=== PATIENT | female | born 1985 | race African-American/Black ===

== ENCOUNTER 2018-03-04 20:58 | Emergency (ER) | payer BC ==
[~2018-03-04] VITALS: Ht 172.7 cm; Wt 126.5 kg
[~2018-03-04 20:58] MED LIST: IBUPROFEN200 M1 PO; KEFLEX500 MG PO; MACROBID 100 M100 M1 PO; NAPROSYN500 MG PO; NORCO 5-325 TA1 EACH PO; TESSALON PERLE100 MG PO; THERAFLU EXP245.5 M1 PO; TRAMADOL 50 MG50 MG PO; VENTOLIN HFA 1818 GM INH; ZANTAC 150MG T150 MG PO
[2018-03-04] MEDS ORDERED: VALIUM5 MG PO (21:59)
[2018-03-04] MEDS ORDERED: MOBIC15 MG PO (21:59)
[2018-03-04 22:09] VITALS: BP 117/80
== END 2018-03-04 22:15 | disposition home or self-care (01) ==
LOC: ER 20:58
DX: S46.912A Strain of unspecified muscle, fascia and tendon at shoulder and upper arm level, left arm, initial encounter (principal); Z88.2 Allergy status to sulfonamides; X58.XXXA Exposure to other specified factors, initial encounter; Y93.89 Activity, other specified; Y92.89 Other specified places as the place of occurrence of the external cause; Y99.8 Other external cause status

== ENCOUNTER 2019-06-12 14:30 | Emergency (ER) | payer BC ==
[~2019-06-12] VITALS: Ht 157.5 cm; Wt 130.2 kg
[~2019-06-12 14:30] MED LIST changes: +MOBIC15 MG PO; +VALIUM5 MG PO
[2019-06-12] MEDS ORDERED: IBUPROFEN 800800 M1 PO (15:28)
[2019-06-12] MEDS ORDERED: NAPROSYN500 MG PO (15:47)
[2019-06-12 15:50] VITALS: BP 144/104
== END 2019-06-12 15:50 | disposition home or self-care (01) ==
LOC: ER 14:30
DX: S86.812A Strain of other muscle(s) and tendon(s) at lower leg level, left leg, initial encounter (principal); Z88.2 Allergy status to sulfonamides; Z88.8 Allergy status to other drugs, medicaments and biological substances; Z86.718 Personal history of other venous thrombosis and embolism; X58.XXXA Exposure to other specified factors, initial encounter; Y92.89 Other specified places as the place of occurrence of the external cause; Y93.89 Activity, other specified; Y99.8 Other external cause status

== ENCOUNTER 2020-08-13 10:36 | Emergency (ER) | payer BC ==
[~2020-08-13] VITALS: Ht 157.5 cm; Wt 131.5 kg
[~2020-08-13 10:36] MED LIST changes: +IBUPROFEN 800800 M1 PO
[2020-08-13 11:07] LABS: WBC 9.1 thou/uL (4.0-11.0)
[2020-08-13 11:08] LABS: ABSOLUTE NEUTROPHILS 5.7 thou/uL (1.4-8.2); BASOPHILS 0.6 % (0.0-2.0); EOSINOPHILS 1.4 % (0.0-3.0); HEMATOCRIT 40.6 % (37.0-47.0); HEMOGLOBIN 13.6 gm/dL (12.0-15.0); MCH 30.5 pg (26.0-34.0); MCHC 33.4 g/dL (28.0-37.0); MCV 91.5 fL (80.0-100.0); MONOCYTES 5.4 % (1.0-8.0); PLATELET COUNT 346 thou/uL (150-400); POLYS 62.6 % (36.0-66.0); RBC 4.44 mil/uL (4.20-5.00); RDW 15.3 % (10.5-14.5)
[2020-08-13 11:18] LABS: ANION GAP 5 mmol/L (7-16); BUN 12 mg/dL (7-18); CALCIUM 9.5 mg/dL (8.5-10.1); CHLORIDE 102 mmol/L (98-107); CO2 28 mmol/L (21-32); CREATININE 1.1 mg/dL (0.6-1.0); GLUCOSE 108 mg/dL (74-106); POTASSIUM 4.3 mmol/L (3.5-5.1); SODIUM 135 mmol/L (136-145)
[2020-08-13 11:23] LABS: URINE BILIRUBIN NEGATIVE (Negative); URINE BLOOD NEGATIVE (Negative); URINE CLARITY CLEAR; URINE COLOR YELLOW; URINE GLUCOSE-RANDOM* NEGATIVE (Negative); URINE KETONES NEGATIVE (Negative); URINE LEUKOCYTES-REFLEX NEGATIVE (Negative); URINE NITRITE-REFLEX NEGATIVE (Negative); URINE PROTEIN (DIPSTICK) NEGATIVE (Negative); URINE UROBILINOGEN 0.2 E.U./dl (0.2-1.0)
[2020-08-13 11:28] LABS: ALBUMIN 3.8 g/dL (3.4-5.0); SGOT 21 U/L (15-37); SGPT 26 U/L (30-65); TOTAL BILIRUBIN 0.4 mg/dL (0.2-1.0); TOTAL PROTEIN 7.9 g/dL (6.4-8.2); TROPONIN-I <0.06 ng/mL (<0.06)
[2020-08-13] MEDS ORDERED: CYCLOBENZAPRINE5 MG PO (12:31)
--- NOTE | 2020-08-13 13:14 | EKG ---
[facility] [place] [address] ELECTROCARDIOGRAM REPORT Name: CASTRO HODGSON Room #: REG [facility].#: [id number] Admission: 08/13/20 Attend Phys: Discharge: Date of : [birth year] Report #: [id number] THIS REPORT FOR: cc: David Patten MD FAA FACE David Patten MD FAA FACE Vish Gray MD [facility] ~ THIS REPORT FOR: //name// [facility] ED Test Date: 2020-08-13 Test Time: 10:45:41 Pat Name: CASTRO HODGSON Department: Room: Gender: F Magazine Hand: : 1985 Requested By: Helio Leal Order Number: [id number] MD: Vish Gray Measurements Intervals [place] Rate: 79 P: 17 ME: 147 QRS: 21 QRSD: 92 T: 5 QT: 369 QTc: 424 Interpretive Statements Sinus rhythm Compared to ECG 01/16/2013 18:37:45 No significant changes Electronically Signed On 08-13-2020 13:14:45 SAND SHOVELER by Vish Gray [email or web address] <ELECTRONICALLY SIGNED> By: Vish Gray MD, FACC 08/13/20 1314 1045 1045 Vish Gray MD, [facility] /EPI
[2020-08-13 13:32] VITALS: BP 122/90
== END 2020-08-13 13:36 | disposition home or self-care (01) ==
LOC: ER 10:36
PROVIDERS: Physician Assistant
DX: R07.89 Other chest pain (principal); M54.5 Low back pain; M54.6 Pain in thoracic spine; M62.830 Muscle spasm of back; R30.0 Dysuria; R20.0 Anesthesia of skin; I10 Essential (primary) hypertension; Z88.2 Allergy status to sulfonamides

== ENCOUNTER 2020-10-12 09:35 | Emergency (ER) | payer OTHER ==
[~2020-10-12] VITALS: Ht 157.5 cm; Wt 130.2 kg
[~2020-10-12 09:35] MED LIST changes: +CYCLOBENZAPRINE5 MG PO
[2020-10-12 10:39] LABS: ABSOLUTE NEUTROPHILS 5.3 thou/uL (1.4-8.2); BASOPHILS 0.5 % (0.0-2.0); EOSINOPHILS 0.7 % (0.0-3.0); HEMATOCRIT 41.1 % (37.0-47.0); HEMOGLOBIN 13.5 gm/dL (12.0-15.0); LYMPHOCYTES 29.7 % (24.0-44.0); MCH 29.6 pg (26.0-34.0); MCHC 32.7 g/dL (28.0-37.0); MCV 90.6 fL (80.0-100.0); PLATELET COUNT 345 thou/uL (150-400); POLYS 64.1 % (36.0-66.0); RBC 4.54 mil/uL (4.20-5.00); RDW 14.2 % (10.5-14.5); WBC 8.3 thou/uL (4.0-11.0)
[2020-10-12 10:48] LABS: ANION GAP 8 mmol/L (7-16); BUN 11 mg/dL (7-18); CALCIUM 9.4 mg/dL (8.5-10.1); CHLORIDE 103 mmol/L (98-107); CO2 27 mmol/L (21-32); CREATININE 1.1 mg/dL (0.6-1.0); GLUCOSE 111 mg/dL (74-106); SODIUM 138 mmol/L (136-145)
[2020-10-12 10:59] LABS: DIRECT BILIRUBIN < 0.1 mg/dL (<0.1-0.2); LIPASE 66 U/L (73-393); SGOT 18 U/L (15-37); SGPT 29 U/L (30-65); TOTAL BILIRUBIN 0.4 mg/dL (0.2-1.0); TROPONIN-I <0.06 ng/mL (<0.06)
[2020-10-12 11:47] LABS: URINE BILIRUBIN NEGATIVE (Negative); URINE BLOOD NEGATIVE (Negative); URINE CLARITY CLEAR; URINE COLOR YELLOW; URINE GLUCOSE-RANDOM* NEGATIVE (Negative); URINE KETONES NEGATIVE (Negative); URINE LEUKOCYTES-REFLEX NEGATIVE (Negative); URINE NITRITE-REFLEX NEGATIVE (Negative); URINE PROTEIN (DIPSTICK) NEGATIVE (Negative); URINE SPECIFIC GRAVITY 1.015 (1.005-1.035); URINE UROBILINOGEN 0.2 E.U./dl (0.2-1.0)
[2020-10-12] MEDS ORDERED: XANAX 0.5 MG0.5 M1 PO (12:21)
[2020-10-12 12:29] VITALS: BP 138/96
--- NOTE | 2020-10-14 07:41 | EKG ---
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: [facility] : 1985 Requested By: Walt Mccormick Order Number: [id number] MD: Jb Myers Measurements Intervals [place] Rate: 77 P: 2 [place]: 146 QRS: 14 QRSD: 183 T: -12 QT: 396 QTc: 449 Interpretive Statements Sinus rhythm No significant abnormality Compared to ECG 08/13/2020 10:45:41 No significant change was found Electronically Signed On 10-14-2020 7:41:39 PASTRY COOK HELPER by Jb Myers [email or web address] <ELECTRONICALLY SIGNED> By: Jb Myers MD, [facility] 10/14/20 0741 0954 0954 Jb Myers MD, FACC /EPI
== END 2020-10-12 12:30 | disposition home or self-care (01) ==
LOC: ER 09:35
PROVIDERS: Emergency Medicine
DX: R07.9 Chest pain, unspecified (principal); R20.2 Paresthesia of skin; Z79.899 Other long term (current) drug therapy; Z88.2 Allergy status to sulfonamides; Z88.8 Allergy status to other drugs, medicaments and biological substances

== ENCOUNTER → 2020-11-12 | Outpatient (CLI) | payer OTHER ==
[~2020-11-12] MED LIST changes: +XANAX 0.5 MG0.5 M1 PO
== END ==
LOC: CAT 16:39
PROVIDERS: ATTEND Family Medicine
DX: Z13.6 Encounter for screening for cardiovascular disorders (principal); I25.10 Atherosclerotic heart disease of native coronary artery without angina pectoris; E78.00 Pure hypercholesterolemia, unspecified

== ENCOUNTER 2020-11-17 13:02 | Emergency (ER) | payer OTHER ==
[~2020-11-17] VITALS: Ht 160 cm; Wt 90.7 kg
[2020-11-17] MEDS ORDERED: CLONIDINE HCL0.1 MG PO (13:30)
[2020-11-17] MEDS ORDERED: PROAIR HFA8.5 GM INH (13:30)
[2020-11-17 14:01] LABS: BASOPHILS 0.5 % (0.0-2.0); EOSINOPHILS 0.3 % (0.0-3.0); HEMATOCRIT 42.8 % (37.0-47.0); LYMPHOCYTES 18.3 % (24.0-44.0); MCH 29.7 pg (26.0-34.0); MCHC 32.8 g/dL (28.0-37.0); MCV 90.5 fL (80.0-100.0); MONOCYTES 4.5 % (1.0-8.0); PLATELET COUNT 349 thou/uL (150-400); POLYS 76.4 % (36.0-66.0); RBC 4.74 mil/uL (4.20-5.00); RDW 14.4 % (10.5-14.5); WBC 9.2 thou/uL (4.0-11.0)
[2020-11-17 14:03] LABS: URINE BILIRUBIN NEGATIVE (Negative); URINE BLOOD NEGATIVE (Negative); URINE CLARITY CLEAR; URINE COLOR YELLOW; URINE GLUCOSE-RANDOM* NEGATIVE (Negative); URINE KETONES NEGATIVE (Negative); URINE LEUKOCYTES-REFLEX NEGATIVE (Negative); URINE NITRITE-REFLEX NEGATIVE (Negative); URINE PROTEIN (DIPSTICK) NEGATIVE (Negative); URINE UROBILINOGEN 0.2 E.U./dl (0.2-1.0)
[2020-11-17 14:08] LABS: ANION GAP 10 mmol/L (7-16); BUN 9 mg/dL (7-18); CALCIUM 9.5 mg/dL (8.5-10.1); CHLORIDE 101 mmol/L (98-107); CO2 27 mmol/L (21-32); CREATININE 1.2 mg/dL (0.6-1.0); GLUCOSE 103 mg/dL (74-106); POTASSIUM 4.4 mmol/L (3.5-5.1); SODIUM 138 mmol/L (136-145)
[2020-11-17 14:18] LABS: ALBUMIN 4.2 g/dL (3.4-5.0); AMYLASE 67 U/L (25-115); DIRECT BILIRUBIN 0.1 mg/dL (<0.1-0.2); LIPASE 63 U/L (73-393); SGOT 19 U/L (15-37); SGPT 25 U/L (30-65); TOTAL BILIRUBIN 0.4 mg/dL (0.2-1.0); TOTAL PROTEIN 8.5 g/dL (6.4-8.2); TROPONIN-I <0.06 ng/mL (<0.06)
[2020-11-17] MEDS ORDERED: NAPROSYN500 MG PO (15:59)
[2020-11-17] MEDS ORDERED: TYLENOL325 M1 PO (15:59)
[2020-11-17] MEDS ORDERED: XANAX 0.5 MG0.5 MG PO (15:59)
[2020-11-17 16:25] VITALS: BP 111/48
--- NOTE | 2020-11-18 07:39 | EKG ---
[place] [address] [facility] [place] [address] ELECTROCARDIOGRAM REPORT Name: CASTRO HODGSONMARLENELynne Room #: [facility] [id number] Admission: 11/17/20 Attend Phys: Discharge: 11/17/20 Date of : [birth year] Report #: [id number] [facility] ED Test Date: 2020-11-17 Test Time: 13:56:18 Pat Name: CASTRO HODGSON Department: Room: Gender: F Assistant: DLEANEY : 1985 Requested By: Walt Mccormick Order Number: [id number] MD: Vish Gray Measurements Intervals [place] Rate: 81 P: 25 [place]: 156 QRS: 21 QRSD: 92 T: 2 QT: 373 QTc: 433 Interpretive Statements Sinus rhythm Compared to ECG 10/12/2020 09:54:34 No significant changes Electronically Signed On 11-18-2020 7:38:59 CAMERA ASSEMBLER by Vish Gray [email or web address] <ELECTRONICALLY SIGNED> By: Vish Gray MD, [facility] 11/18/20 0738 1356 1356 Vish Gray MD, FACC /EPI
== END 2020-11-17 16:26 | disposition home or self-care (01) ==
LOC: ER 13:02
PROVIDERS: Emergency Medicine
DX: R07.9 Chest pain, unspecified (principal); F41.9 Anxiety disorder, unspecified; I10 Essential (primary) hypertension; N28.9 Disorder of kidney and ureter, unspecified; Z79.899 Other long term (current) drug therapy; Z88.2 Allergy status to sulfonamides; Z88.8 Allergy status to other drugs, medicaments and biological substances

== ENCOUNTER 2020-11-25 06:18 | Emergency (ER) | payer OTHER ==
[~2020-11-25] VITALS: Ht 157.5 cm; Wt 122.5 kg
[~2020-11-25 06:18] MED LIST changes: +CLONIDINE HCL0.1 MG PO; +PROAIR HFA8.5 GM INH; +TYLENOL325 M1 PO; +XANAX 0.5 MG0.5 MG PO
[2020-11-25 06:53] LABS: ABSOLUTE NEUTROPHILS 6.9 thou/uL (1.4-8.2); BASOPHILS 0.7 % (0.0-2.0); EOSINOPHILS 0.5 % (0.0-3.0); HEMATOCRIT 40.4 % (37.0-47.0); HEMOGLOBIN 13.1 gm/dL (12.0-15.0); LYMPHOCYTES 24.6 % (24.0-44.0); MCH 29.3 pg (26.0-34.0); MCHC 32.4 g/dL (28.0-37.0); MCV 90.3 fL (80.0-100.0); PLATELET COUNT 314 thou/uL (150-400); POLYS 68.2 % (36.0-66.0); RBC 4.47 mil/uL (4.20-5.00); RDW 14.7 % (10.5-14.5); WBC 10.1 thou/uL (4.0-11.0)
[2020-11-25 07:07] LABS: ANION GAP 9 mmol/L (7-16); BUN 10 mg/dL (7-18); CALCIUM 9.2 mg/dL (8.5-10.1); CHLORIDE 103 mmol/L (98-107); CO2 26 mmol/L (21-32); CREATININE 1.3 mg/dL (0.6-1.0); GLUCOSE 109 mg/dL (74-106); POTASSIUM 4.3 mmol/L (3.5-5.1); SODIUM 138 mmol/L (136-145)
[2020-11-25 07:15] LABS: TROPONIN-I <0.06 ng/mL (<0.06)
[2020-11-25 07:55] VITALS: BP 119/81
--- NOTE | 2020-11-25 14:56 | EKG ---
[address] [address] ELECTROCARDIOGRAM REPORT Name: CASRTO HODGSONMARLENELynne Room #: [facility] [id number] Admission: 11/25/20 Attend Phys: Discharge: 11/25/20 Date of : [birth year] Report #: [id number] [facility] ED Test Date: 2020-11-25 Test Time: 06:26:40 Pat Name: CASTRO HODGSON Department: Room: Gender: F Treasurer: TBARNES2 : 1985 Requested By: Richard Junior Order Number: [id number] MD: Rick Pandey Measurements Intervals [place] Rate: 89 P: 35 [place]: 148 QRS: 8 QRSD: 89 T: 9 QT: 352 QTc: 424 Interpretive Statements Sinus rhythm Compared to ECG 11/17/2020 13:56:18 No significant changes Electronically Signed On 11-25-2020 14:56:43 CDT by Rick Pandey [email or web address] <ELECTRONICALLY SIGNED> By: Rick Pandey MD 11/25/20 1456 0626 0626 MD CAL Vasquez
== END 2020-11-25 07:55 | disposition home or self-care (01) ==
LOC: ER 06:18
PROVIDERS: Emergency Medicine
DX: R07.89 Other chest pain (principal); I10 Essential (primary) hypertension; Z79.899 Other long term (current) drug therapy; Z88.2 Allergy status to sulfonamides; Z88.8 Allergy status to other drugs, medicaments and biological substances

== ENCOUNTER 2020-12-05 11:56 | Emergency (ER) | payer OTHER ==
[~2020-12-05] VITALS: Ht 157.5 cm; Wt 122.5 kg
[2020-12-05 12:26] LABS: URINE BILIRUBIN NEGATIVE (Negative); URINE BLOOD NEGATIVE (Negative); URINE CLARITY CLEAR; URINE COLOR YELLOW; URINE GLUCOSE-RANDOM* NEGATIVE (Negative); URINE KETONES NEGATIVE (Negative); URINE LEUKOCYTES-REFLEX NEGATIVE (Negative); URINE NITRITE-REFLEX NEGATIVE (Negative); URINE PROTEIN (DIPSTICK) NEGATIVE (Negative); URINE UROBILINOGEN 0.2 E.U./dl (0.2-1.0)
[2020-12-05 14:15] LABS: ABSOLUTE NEUTROPHILS 5.9 thou/uL (1.4-8.2); BASOPHILS 0.3 % (0.0-2.0); EOSINOPHILS 0.6 % (0.0-3.0); HEMATOCRIT 43.4 % (37.0-47.0); HEMOGLOBIN 14.4 gm/dL (12.0-15.0); LYMPHOCYTES 27.3 % (24.0-44.0); MCH 29.9 pg (26.0-34.0); MCHC 33.1 g/dL (28.0-37.0); MCV 90.3 fL (80.0-100.0); MONOCYTES 5.3 % (1.0-8.0); PLATELET COUNT 330 thou/uL (150-400); POLYS 66.5 % (36.0-66.0); RBC 4.81 mil/uL (4.20-5.00); RDW 14.2 % (10.5-14.5); WBC 8.8 thou/uL (4.0-11.0)
[2020-12-05 14:26] LABS: CALCIUM 9.7 mg/dL (8.5-10.1); CREATININE 1.1 mg/dL (0.6-1.0); POTASSIUM 4.3 mmol/L (3.5-5.1)
[2020-12-05 14:32] LABS: ALBUMIN 3.9 g/dL (3.4-5.0); TOTAL BILIRUBIN 0.4 mg/dL (0.2-1.0); TOTAL PROTEIN 8.1 g/dL (6.4-8.2)
[2020-12-05] MEDS ORDERED: NORCO5 PO (16:23)
[2020-12-05] MEDS ORDERED: FLAGYL500 M1 PO (16:23)
[2020-12-05] MEDS ORDERED: CYCLOBENZAPRINE5 MG PO (16:23)
[2020-12-05 17:09] VITALS: BP 110/71
== END 2020-12-05 17:09 | disposition home or self-care (01) ==
LOC: ER 11:56
PROVIDERS: Physician Assistant
DX: M48.00 Spinal stenosis, site unspecified (principal); N76.0 Acute vaginitis; B96.89 Other specified bacterial agents as the cause of diseases classified elsewhere; I10 Essential (primary) hypertension; Z79.899 Other long term (current) drug therapy; Z88.2 Allergy status to sulfonamides; Z88.8 Allergy status to other drugs, medicaments and biological substances

== ENCOUNTER 2020-12-13 16:19 | Emergency (ER) | payer OTHER ==
[~2020-12-13] VITALS: Ht 157.5 cm; Wt 121.1 kg
[~2020-12-13 16:19] MED LIST changes: +FLAGYL500 M1 PO; +NORCO5 PO
[2020-12-13 16:58] LABS: HEMATOCRIT 40.5 % (37.0-47.0); HEMOGLOBIN 13.5 gm/dL (12.0-15.0); MCH 30.4 pg (26.0-34.0); MCHC 33.4 g/dL (28.0-37.0); RBC 4.46 mil/uL (4.20-5.00); RDW 14.5 % (10.5-14.5); WBC 9.2 thou/uL (4.0-11.0)
[2020-12-13 17:08] LABS: ANION GAP 7 mmol/L (7-16); BUN 9 mg/dL (7-18); CALCIUM 9.3 mg/dL (8.5-10.1); CHLORIDE 102 mmol/L (98-107); CO2 26 mmol/L (21-32); CREATININE 1.1 mg/dL (0.6-1.0); GLUCOSE 111 mg/dL (74-106); POTASSIUM 4.2 mmol/L (3.5-5.1); SODIUM 135 mmol/L (136-145)
[2020-12-13 17:18] LABS: ALBUMIN 3.8 g/dL (3.4-5.0); SGOT 19 U/L (15-37); SGPT 26 U/L (30-65); TOTAL BILIRUBIN 0.3 mg/dL (0.2-1.0); TROPONIN-I <0.06 ng/mL (<0.06)
[2020-12-13] MEDS ORDERED: VISTARIL50 MG PO (17:40)
[2020-12-13 18:00] VITALS: BP 106/66
--- NOTE | 2020-12-16 07:16 | EKG ---
[place] [address] [facility] [place] [address] ELECTROCARDIOGRAM REPORT Name: CASTRO HODGSONMARLENELynne [facility] #: 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: : 1985 Requested By: Sweetie Ott Order Number: [id number] MD: Vish Gray Measurements Intervals [place] Rate: 80 P: 18 SC: 155 QRS: 4 QRSD: 91 T: -1 QT: 369 QTc: 426 Interpretive Statements Sinus rhythm Borderline T abnormalities, inferior leads Baseline wander in lead(s) V3 Compared to ECG 11/25/2020 06:26:40 T-wave abnormality now present Electronically Signed On 12-16-2020 7:16:30 CDT by Vish Gray [email or web address] <ELECTRONICALLY SIGNED> By: Vish Gray MD, [facility] 12/16/20 0716 25 25 Vish Gray MD, [facility] /EPI
== END 2020-12-13 18:28 | disposition home or self-care (01) ==
LOC: ER 16:19
PROVIDERS: Nurse Practitioner Family
DX: R07.9 Chest pain, unspecified (principal); R51.9 Headache, unspecified; I10 Essential (primary) hypertension; Z79.899 Other long term (current) drug therapy; Z88.8 Allergy status to other drugs, medicaments and biological substances; Z88.1 Allergy status to other antibiotic agents

== ENCOUNTER 2020-12-20 19:28 | Emergency (ER) | payer OTHER ==
[~2020-12-20] VITALS: Ht 157.5 cm; Wt 121.1 kg
--- NOTE | ~2020-12-20 | EKG ---
[place] [address] [place] [address] ELECTROCARDIOGRAM REPORT Name: CASTRO HODGSON TAINA Room #: PRE [facility].R.#: [id number] Admission: Attend Phys: Discharge: Date of : [birth year] Report #: [id number] [facility] ED Test Date: 2020-12-20 Test Time: 19:36:19 Pat Name: CASTRO HODGSON Department: Room: Gender: F Liquor Inspector: RODRIGO : 1985 Requested By: Richard Junior Order Number: [id number] MD: Measurements Intervals [place] Rate: 90 P: 21 [place]: 141 QRS: 8 QRSD: 86 T: 7 QT: 351 QTc: 430 Interpretive Statements Sinus rhythm Probable left atrial enlargement No previous ECG available for comparison [email or web address] By: 35 35 Bill Khan MD /EPI
[~2020-12-20 19:28] MED LIST changes: +VISTARIL50 MG PO
[2020-12-20 20:57] LABS: ABSOLUTE NEUTROPHILS 6.8 thou/uL (1.4-8.2); BASOPHILS 0.6 % (0.0-2.0); EOSINOPHILS 0.9 % (0.0-3.0); HEMATOCRIT 38.6 % (37.0-47.0); HEMOGLOBIN 12.7 gm/dL (12.0-15.0); LYMPHOCYTES 26.7 % (24.0-44.0); MCH 30.2 pg (26.0-34.0); MCV 91.5 fL (80.0-100.0); PLATELET COUNT 320 thou/uL (150-400); POLYS 67.8 % (36.0-66.0); RBC 4.22 mil/uL (4.20-5.00); RDW 14.8 % (10.5-14.5); WBC 10.1 thou/uL (4.0-11.0)
[2020-12-20 21:05] LABS: ANION GAP 8 mmol/L (7-16); BUN 10 mg/dL (7-18); CALCIUM 8.8 mg/dL (8.5-10.1); CHLORIDE 104 mmol/L (98-107); CO2 28 mmol/L (21-32); CREATININE 1.3 mg/dL (0.6-1.0); GLUCOSE 95 mg/dL (74-106); POTASSIUM 3.8 mmol/L (3.5-5.1); SODIUM 140 mmol/L (136-145)
[2020-12-20 21:16] LABS: ALBUMIN 3.5 g/dL (3.4-5.0); LIPASE 62 U/L (73-393); SGOT 16 U/L (15-37); SGPT 20 U/L (30-65); TOTAL BILIRUBIN 0.4 mg/dL (0.2-1.0); TOTAL PROTEIN 7.3 g/dL (6.4-8.2); TROPONIN-I <0.06 ng/mL (<0.06)
[2020-12-20] MEDS ORDERED: IBU600 MG PO (21:40)
[2020-12-20] MEDS ORDERED: ATIVAN1 M1 PO (21:41)
[2020-12-20 21:51] VITALS: BP 126/97
--- NOTE | 2020-12-22 11:03 | EKG ---
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
== END 2020-12-20 21:56 | disposition home or self-care (01) ==
LOC: ER 19:28
PROVIDERS: Emergency Medicine
DX: R07.9 Chest pain, unspecified (principal); I10 Essential (primary) hypertension; Z79.899 Other long term (current) drug therapy; Z88.2 Allergy status to sulfonamides; Z88.8 Allergy status to other drugs, medicaments and biological substances

== ENCOUNTER 2020-12-31 17:47 | Emergency (ER) | payer OTHER ==
[~2020-12-31] VITALS: Ht 157.5 cm; Wt 118.8 kg
[~2020-12-31 17:47] MED LIST changes: +ATIVAN1 M1 PO; +IBU600 MG PO
[2020-12-31] MEDS ORDERED: SERTRALINE HCL100 MG PO (18:44)
[2020-12-31] MEDS ORDERED: NORVASC5 MG PO (18:45)
[2020-12-31] MEDS ORDERED: NEXIUM40 MG PO (19:15)
[2020-12-31] MEDS ORDERED: ATIVAN1 M1 PO (19:16)
[2020-12-31 19:42] VITALS: BP 141/94
--- NOTE | 2021-01-01 17:26 | EKG ---
[place] [address] [facility] [employer] [place] [address] ELECTROCARDIOGRAM REPORT Name: CASTRO HODGSON [facility] [id number] Admission: 12/31/20 Attend Phys: Discharge: 12/31/20 Date of : [birth year] Report #: [id number] [facility] ED Test Date: 2020-12-31 Test Time: 18:04:29 Pat Name: CASTRO HODGSON Department: Room: Gender: F Records Management Engineer: MARNIEMOISES : 1985 Requested By: Richard Junior Order Number: [id number] MD: Jb Myers Measurements Intervals [place] Rate: 83 P: 15 PA: 141 QRS: 3 QRSD: 89 T: 5 QT: 368 QTc: 433 Interpretive Statements Sinus rhythm Poor R wave progression Compared to ECG 12/20/2020 19:36:19 No significant changes Electronically Signed On 01-01-2021 17:26:46 CDT by Jb Myers [email or web address] <ELECTRONICALLY SIGNED> By: Jb Myers MD, [facility] 01/01/21 1726 1804 1804 Jb Myers MD, FACC /EPI
== END 2020-12-31 19:36 | disposition home or self-care (01) ==
LOC: ER 17:47
DX: R07.89 Other chest pain (principal); I10 Essential (primary) hypertension; Z79.899 Other long term (current) drug therapy; Z88.1 Allergy status to other antibiotic agents; Z88.8 Allergy status to other drugs, medicaments and biological substances

== ENCOUNTER → 2021-01-07 | Outpatient (CLI) | payer OTHER ==
[~2021-01-07] MED LIST changes: +NEXIUM40 MG PO; +NORVASC5 MG PO; +SERTRALINE HCL100 MG PO
== END ==
LOC: SJCVCIMAG 15:01
PROVIDERS: ATTEND Internal Medicine
DX: I07.1 Rheumatic tricuspid insufficiency (principal); I10 Essential (primary) hypertension; E78.5 Hyperlipidemia, unspecified; Z86.16 Personal history of COVID-19; Z88.8 Allergy status to other drugs, medicaments and biological substances; Z79.899 Other long term (current) drug therapy

== ENCOUNTER 2021-03-14 16:27 | Emergency (ER) | payer OTHER ==
[~2021-03-14] VITALS: Ht 157.5 cm; Wt 113.4 kg
[2021-03-14 17:11] LABS: HEMATOCRIT 39.5 % (37.0-47.0); HEMOGLOBIN 13.4 gm/dL (12.0-15.0); MCH 30.8 pg (26.0-34.0); MCV 90.8 fL (80.0-100.0); RBC 4.35 mil/uL (4.20-5.00); RDW 14.8 % (10.5-14.5)
[2021-03-14 17:17] LABS: ANION GAP 7 mmol/L (7-16); BUN 11 mg/dL (7-18); CALCIUM 9.3 mg/dL (8.5-10.1); CHLORIDE 102 mmol/L (98-107); CO2 28 mmol/L (21-32); CREATININE 1.3 mg/dL (0.6-1.0); GLUCOSE 93 mg/dL (74-106); POTASSIUM 4.4 mmol/L (3.5-5.1); SODIUM 137 mmol/L (136-145)
--- NOTE | 2021-03-14 17:20 | EKG ---
[place] [address] [address] 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 03/14/21 1720 1632 32 Vish Gray MD, FACC /EPI
[2021-03-14 17:26] LABS: ALBUMIN 3.8 g/dL (3.4-5.0); LIPASE 73 U/L (73-393); SGOT 20 U/L (15-37); SGPT 24 U/L (14-59); TOTAL BILIRUBIN 0.3 mg/dL (0.2-1.0); TOTAL PROTEIN 8.2 g/dL (6.4-8.2); TROPONIN-I <0.06 ng/mL (<0.06)
[2021-03-14 17:41] LABS: URINE BILIRUBIN NEGATIVE (Negative); URINE BLOOD NEGATIVE (Negative); URINE CLARITY CLEAR; URINE COLOR YELLOW; URINE GLUCOSE-RANDOM* NEGATIVE (Negative); URINE KETONES NEGATIVE (Negative); URINE LEUKOCYTES-REFLEX NEGATIVE (Negative); URINE NITRITE-REFLEX NEGATIVE (Negative); URINE PROTEIN (DIPSTICK) NEGATIVE (Negative); URINE SPECIFIC GRAVITY <= 1.005 (1.005-1.035); URINE UROBILINOGEN 0.2 E.U./dl (0.2-1.0)
[2021-03-14 19:14] VITALS: BP 119/78
== END 2021-03-14 19:15 | disposition home or self-care (01) ==
LOC: ER 16:27
PROVIDERS: Nurse Practitioner Family
DX: R07.89 Other chest pain (principal); R00.0 Tachycardia, unspecified; R05 Cough; R42 Dizziness and giddiness; I10 Essential (primary) hypertension; Z88.1 Allergy status to other antibiotic agents; Z88.2 Allergy status to sulfonamides

== ENCOUNTER 2021-07-14 18:59 | Emergency (ER) | payer OTHER ==
[~2021-07-14] VITALS: Ht 157.5 cm; Wt 113.0 kg
[2021-07-14 19:36] LABS: ABSOLUTE NEUTROPHILS 6.1 thou/uL (1.4-8.2); BASOPHILS 0.8 % (0.0-2.0); HEMATOCRIT 42.7 % (37.0-47.0); HEMOGLOBIN 14.3 gm/dL (12.0-15.0); LYMPHOCYTES 30.8 % (24.0-44.0); MCH 31.6 pg (26.0-34.0); MCHC 33.5 g/dL (28.0-37.0); MCV 94.2 fL (80.0-100.0); PLATELET COUNT 305 thou/uL (150-400); POLYS 62.4 % (36.0-66.0); RBC 4.54 mil/uL (4.20-5.00); RDW 15.4 % (10.5-14.5); WBC 9.8 thou/uL (4.0-11.0)
[2021-07-14 20:04] LABS: ANION GAP 8 mmol/L (7-16); BUN 16 mg/dL (7-18); CHLORIDE 104 mmol/L (98-107); CO2 27 mmol/L (21-32); GLUCOSE 98 mg/dL (74-106); SODIUM 139 mmol/L (136-145)
[2021-07-14 20:14] LABS: ALBUMIN 3.8 g/dL (3.4-5.0); SGOT 27 U/L (15-37); SGPT 32 U/L (14-59); TOTAL BILIRUBIN 0.3 mg/dL (0.2-1.0); TOTAL PROTEIN 8.1 g/dL (6.4-8.2)
[2021-07-14] MEDS ORDERED: PEPCID20 MG PO (20:42)
[2021-07-14 20:52] VITALS: BP 151/103
--- NOTE | 2021-07-15 07:36 | EKG ---
[place] [address] [facility] [place] [address] ELECTROCARDIOGRAM REPORT Name: CASTRO HODGSON TAINA Room #: [facility] [id number] Admission: 07/14/21 Attend Phys: Discharge: 07/14/21 Date of : [birth year] Report #: [id number] [facility] ED Test Date: 2021-07-14 Test Time: 19:03:23 Pat Name: CASTRO HODGSON Department: Room: Gender: F Compactor Driver: rn gastroenterology : 1985 Requested By: Konstantin Mcdaniel Order Number: [id number] MD: Vish Gray Measurements Intervals [place] Rate: 67 P: 18 CT: 155 QRS: 11 QRSD: 110 T: 7 QT: 397 QTc: 419 Interpretive Statements Sinus rhythm Low voltage, precordial leads Baseline wander in lead(s) I,III,aVR,aVL,V1,V2,V3,V4,V5,V6 Compared to ECG 03/14/2021 16:33:20 Low QRS voltage now present T-wave abnormality no longer present Electronically Signed On 07-15-2021 7:36:04 CDT by Vish Gray [email or web address] <ELECTRONICALLY SIGNED> By: Vish Gray MD, FAC 07/15/21 0736 190 02 Vish Gray MD, [facility] /EPI
== END 2021-07-14 20:59 | disposition home or self-care (01) ==
LOC: ER 18:59
PROVIDERS: Emergency Medicine
DX: R07.89 Other chest pain (principal); I10 Essential (primary) hypertension; Z88.2 Allergy status to sulfonamides